=== PATIENT | female | born 1955 | race Caucasian/White ===

== ENCOUNTER 2021-11-19 02:14 | Inpatient (IN) | payer MEDICAID ==
[~2021-11-19] VITALS: Ht 157.5 cm; Wt 116.1 kg
[2021-11-19 02:38] VITALS: BP_SYST 147
--- NOTE | 2021-11-19 02:41 | NUR ---
Placed in room 7 . Placed on cardiac cath technician, blood pressure machine and pulse oximeter. To gown for exam. Side rails up. Report given to Marge RHODES(myah) by Shanel RHODES(reg).
--- NOTE | 2021-11-19 02:41 | NUR ---
ASSISTED TO RM7 VIA WHELLCHAIR C/O HIGH BP AT HOME WITH NAUSEA. PT STATED THAT HER SBP WAS ON 150'S,+SOB. PT DENIES CHESTPAIN AND DIZZINESS, DENIES HEADACHE. PMH;HTN,DM PT PLACED ON CARDIAC MONITORS. PENDING MD GUERRERO.
--- NOTE | 2021-11-19 02:45 | NUR ---
66 y/o F arrived via with c/o elevated bp at home. Pt reports around 1900 she started feeling SOB (+) nauseated and noticed bp was elevated in the 160's. Pt took Losartan 50 mg 1.5 tabs at home with no change in bp or symptoms. Per pt, she is visiting from [facility] and airport discarded her medication so she has not been able to take her Clonazepam in the last 3 days; which she normally takes 0.5 mg daily. Pt arrived in NAD. Breathing adequately on RA; 97% O2 sat. Son at bedside.
[2021-11-19] MEDS ORDERED: clonazePAM 0.5 MG TABLET PO ONE (03:15)
--- NOTE | 2021-11-19 03:15 | NUR ---
MD REA AT BEDSIDE
[2021-11-19] MEDS ORDERED: clonazePAM 0.5 MG TABLET ONE (03:21)
[2021-11-19] MEDS ORDERED: ASPIRIN 325 MG TABLET PO ONE (03:30)
[2021-11-19 03:33] LABS: BASOPHILS # (AUTO) 0.1 K/uL (0.0-0.2); BASOPHILS % (AUTO) 1.3 % (0.0-2.0); EOSINOPHILS # (AUTO) 0.5 K/uL (0.0-0.4); EOSINOPHILS % (AUTO) 6.4 % (0.0-4.0); HEMATOCRIT 38.3 % (36-48); HEMOGLOBIN 13.3 g/dL (12.0-16.0); LYMPHOCYTES # (AUTO) 3.4 K/uL (1.0-5.5); MEAN CORPUSCULAR HEMOGLOBIN 32 pg (27-31); MEAN CORPUSCULAR HGB CONC 35 % (32-36); MEAN CORPUSCULAR VOLUME 92 fL (79.0-98.0); MONOCYTES # (AUTO) 0.7 K/uL (0.0-1.0); MONOCYTES % (AUTO) 8.9 % (1.7-9.3); NEUTROPHILS # (AUTO) 2.8 K/uL (1.8-7.7); NEUTROPHILS % (AUTO) 37.4 % (40.0-70.0); PLATELET COUNT (AUTO) 143 K/uL (130-430); RED BLOOD CELL COUNT(AUTO) 4.17 MIL/uL (4.2-6.2); RED CELL DISTRIBUTION WIDTH 12.7 % (9.0-15.0); WHITE BLOOD COUNT (AUTO) 7.4 K/uL (4.8-10.8)
[2021-11-19 03:40] LABS: ANION GAP 8 (5-15); CALCIUM 9.2 mg/dL (8.4-11.0); CHLORIDE 104 mmol/L (98-107); GLUCOSE 124 mg/dL (70-99); POTASSIUM 3.2 mmol/L (3.5-5.1); SODIUM SERUM 139 mmol/L (136-145); UREA NITROGEN, BLOOD 17 mg/dL (8-21)
[2021-11-19 03:47] LABS: GFR AFRICAN AMERICAN 80 mL/min (>90)
[2021-11-19 03:49] LABS: ALANINE AMINOTRANSFERASE 22 U/L (12-78); ALBUMIN 3.1 g/dL (3.4-4.8); ASPARTATE AMINOTRANSFERASE 24 U/L (10-37); TOTAL BILIRUBIN 0.6 mg/dL (0.0-1.0)
--- NOTE | 2021-11-19 04:20 | NUR ---
Rama DOUGHERTY collected and sent to lab.
[2021-11-19 05:34] LABS: BILIRUBIN,URINE NEGATIVE (NEGATIVE); CLARITY/URINE CLEAR (CLEAR); COLOR,URINE YELLOW (YELLOW); GLUCOSE,URINE NEGATIVE (NEGATIVE); KETONES,URINE NEGATIVE (NEGATIVE); LEUKOCYTE ESTERASE ,URINE 2+ (NEGATIVE); NITRITE, URINE NEGATIVE (NEGATIVE); PROTEIN URINE NEGATIVE (NEGATIVE)
--- NOTE | 2021-11-19 05:38 | NUR ---
Admit bed requested Patient will be admitted to care of . Admitted to TELE unit. Diagnosis CHEST PAIN Inpatient (Yes or No) YES Observation (Yes or No) NO Orientation concerns or request close to nursing station (Yes or No) NO Covid Status NEGATIVE On vent or bipap NO Isolation requirements NO Needs a sitter NO From Home (Yes or if No enter name of facility) YES Requires Dialysis (Yes or No) NO Med Rec Completed (Yes of No) PENDING
[2021-11-19 05:39] LABS: BLOOD, URINE TRACE (NEGATIVE)
[2021-11-19] MEDS ORDERED: cloNIDine HCL 0.1 MG TABLET PO PRN (05:45)
[2021-11-19] MEDS ORDERED: LORazepam 1 MG TABLET PO PRN (05:45)
[2021-11-19] MEDS ORDERED: LOSA100T3 PO (05:46)
[2021-11-19] MEDS ORDERED: LEVO100T PO (05:46)
[2021-11-19] MEDS ORDERED: METF-518 PO (05:46)
[2021-11-19] MEDS ORDERED: CLON0.5T4 PO (05:46)
--- NOTE | 2021-11-19 05:46 | NUR ---
Medication reconciliation completed with information provided by pt at the bedside. Any prior medication reconciliation on file was reviewed and corrected.
[2021-11-19 05:51] LABS: BARBITURATE, URINE NEGATIVE (NEG <=200); BENZODIAZEPINE, URINE NEGATIVE (NEG <=150); CANNABINOID, URINE NEGATIVE (NEG <=50); COCAINE, URINE NEGATIVE (NEG <=150); METHAMPHETAMINES SCREEN,URINE NEGATIVE (NEG <=500); OPIATE, URINE NEGATIVE (NEG <=100); PHENCYCLIDINE SCREEN,URINE NEGATIVE (NEG <=25); URINE AMPHETAMINE NEGATIVE (NEG <=500); URINE METHADONE NEGATIVE (NEG <=200); URINE OXYCODONE SCREEN NEGATIVE (NEG <=100); URINE PROPOXYPHENE SCREEN NEGATIVE (NEG <=300)
[2021-11-19 05:52] LABS: UR TRICYCLIC ANTIDEPRESSANTS NEGATIVE (NEG <=300)
[2021-11-19 06:06] LABS: RBC,URINE 20-50 /HPF (0-3); WBC,URINE 20-50 /HPF (0-3)
[2021-11-19 06:07] LABS: BACTERIA,URINE None Seen /HPF (None Seen); MUCUS,URINE 1+ /LPF (None Seen)
--- NOTE | 2021-11-19 06:37 | NUR ---
CONSULTATION PAGED/CALLED Reason for Consultation: [] CHEST PAIN Person Who was Notified: [] MARCELO Consulting Physician: [] DR RAMIREZ Trade Show Specialist Specialty: [] CARDIO Ordering Physician: [] DR LORENZANA
--- NOTE | 2021-11-19 06:38 | NUR ---
Patient will be admitted to care of MD LORENZANA. Admitted to TELE unit. Will go to room 119. Complete and up to date summary report printed. SBAR report given at bedside to receiving MEAGAN Hylton with opportunity for questions. Son at bedside during admit to Tele floor.
[2021-11-19 06:45] VITALS: BP_SYST 129
--- NOTE | 2021-11-19 07:15 | NUR ---
pt.received via er.dept.language barrier extant:luxembourger.pt.presents admit s/s;chest pain.pt.stated no chest pain nor sob.pt.presents diabetic hx.labs values wnl.pt.presents general status stable.respiratory status stable;unlabored@ room air.02-sat%=98%.pt.capable to ambulate w/out assistance.no c/o of general pain.pt.apprised that snacks/ beverages are available w/in the shift.call light/telephone presented and demonstration attended to.
--- NOTE | 2021-11-19 08:00 | NUR ---
Report received. Pt is awake,alert, and oriented x4, vs stable, denies any pain, no acute distress, NSR on tele. Labs reviewed. Maintain safety measures, side rails up, call light within reach, bed to low position. Assuming care for pt at this time.
[2021-11-19 08:30] VITALS: BP_SYST 152
[2021-11-19] MEDS: LOSARTAN POTASSIUM 50 MG TABLET (COZAAR) PO SCH (09:42)
[2021-11-19] MEDS: clonazePAM 0.5 MG TABLET PO SCH ×2 (09:42→20:11)
[2021-11-19] MEDS ORDERED: INSULIN REGULAR, HUMAN 100 UNITS/ML, 10 ML VIAL (humuLIN R) SUBCUT PRN (10:45)
[2021-11-19] MEDS ORDERED: LOSARTAN POTASSIUM 50 MG TABLET (COZAAR) PO SCH (10:45)
[2021-11-19] MEDS ORDERED: clonazePAM 0.5 MG TABLET PO SCH (10:45)
[2021-11-19] MEDS ORDERED: LEVOTHYROXINE SODIUM 0.1 MG TABLET PO SCH (10:45)
[2021-11-19] MEDS ORDERED: POTASSIUM CHLORIDE 20 MEQ TAB.PRT.SR PO ONE (11:15)
[2021-11-19 12:04] VITALS: BP_SYST 140
[2021-11-19 13:06] LABS: BILIRUBIN,URINE NEGATIVE (NEGATIVE); BLOOD, URINE NEGATIVE (NEGATIVE); CLARITY/URINE CLEAR (CLEAR); COLOR,URINE YELLOW (YELLOW); GLUCOSE,URINE NEGATIVE (NEGATIVE); KETONES,URINE NEGATIVE (NEGATIVE); LEUKOCYTE ESTERASE ,URINE 1+ (NEGATIVE); NITRITE, URINE NEGATIVE (NEGATIVE); PH,URINE 6.5 (5.0-8.0); PROTEIN URINE TRACE (NEGATIVE)
[2021-11-19 15:05] LABS: BACTERIA,URINE FEW /HPF (None Seen); RBC,URINE 0-3 /HPF (0-3)
[2021-11-19 16:55] LABS: THYROID STIMULATING HORMONE 4.77 uIu/mL (0.36-3.74)
[2021-11-19 17:00] VITALS: BP_SYST 150
--- NOTE | 2021-11-19 18:00 | NUR ---
Pt remains stable, denies any pain, ate 100% of dinner. Accu checks 104, sitting up on chair. Vital signs stable, no significant changes this time.
--- NOTE | 2021-11-19 19:10 | NUR ---
OPENING NOTES PATIENT IS RESTING, NO SIGNS OF ACUTE DISTRESS NOTED. FRIEND AT BEDSIDE. CALL LIGHT WITHIN REACH, BED ALARM REFUSED AT THIS TIME DESPITE PATIENT TEACHING, PATIENT DEMONSTRATES PROPER CALL LIGHT USAGE. BED AT LOWEST POSITION, BED LOCKED. DISCUSSED PLAN OF CARE WITH PATIENT. FALL, RESPIRATORY, ASPIRATION, AND SAFETY PRECAUTIONS IN PLACE. WILL CONTINUE TO MONITOR. WILL CONTINUE TO MONITOR.
[2021-11-19 20:00] VITALS: BP_SYST 135
[2021-11-20] VITALS: BP_SYST 149
--- NOTE | 2021-11-20 06:49 | NUR ---
CLOSING NOTES PATIENT IS RESTING, NO SIGNS OF DISTRESS NOTED AT THIS TIME. CALL LIGHT WITHIN REACH, BED ALARM ON, BED AT LOWEST POSITION, BED LOCKED. FALL, RESPIRATORY, ASPIRATION, AND SAFETY PRECAUTIONS IN PLACE THROUGHOUT SHIFT. ALL NEEDS TO BE MET THROUGHOUT SHIFT. WILL ENDORSE CARE TO ONCOMING SHIFT.
[2021-11-20 06:54] LABS: BASOPHILS % (AUTO) 0.6 % (0.0-2.0); EOSINOPHILS # (AUTO) 0.4 K/uL (0.0-0.4); EOSINOPHILS % (AUTO) 5.2 % (0.0-4.0); HEMATOCRIT 36.5 % (36-48); HEMOGLOBIN 12.5 g/dL (12.0-16.0); LYMPHOCYTES # (AUTO) 2.9 K/uL (1.0-5.5); LYMPHOCYTES % (AUTO) 40.5 % (20.5-51.5); MEAN CORPUSCULAR HEMOGLOBIN 32 pg (27-31); MEAN CORPUSCULAR HGB CONC 34 % (32-36); MEAN CORPUSCULAR VOLUME 93 fL (79.0-98.0); MONOCYTES # (AUTO) 0.6 K/uL (0.0-1.0); MONOCYTES % (AUTO) 8.9 % (1.7-9.3); NEUTROPHILS # (AUTO) 3.3 K/uL (1.8-7.7); NEUTROPHILS % (AUTO) 44.8 % (40.0-70.0); PLATELET COUNT (AUTO) 137 K/uL (130-430); RED BLOOD CELL COUNT(AUTO) 3.92 MIL/uL (4.2-6.2); RED CELL DISTRIBUTION WIDTH 13.1 % (9.0-15.0); WHITE BLOOD COUNT (AUTO) 7.3 K/uL (4.8-10.8)
[2021-11-20] MEDS ORDERED: LEVOTHYROXINE SODIUM 0.1 MG TABLET PO SCH (07:00)
[2021-11-20 07:50] VITALS: BP_SYST 126
[2021-11-20 07:53] LABS: ALBUMIN 2.8 g/dL (3.4-4.8); CREATININE 0.84 mg/dL (0.55-1.30); FREE T4 (FREE THYROXINE) 0.9 ng/dl (0.8-1.5); POTASSIUM 3.7 mmol/L (3.5-5.1); THYROID STIMULATING HORMONE 7.27 uIu/mL (0.36-3.74); TOTAL BILIRUBIN 0.5 mg/dL (0.0-1.0)
[2021-11-20] MEDS: clonazePAM 0.5 MG TABLET PO SCH (08:21)
[2021-11-20] MEDS: LOSARTAN POTASSIUM 50 MG TABLET (COZAAR) PO SCH (08:22)
--- NOTE | 2021-11-20 13:17 | NUR ---
DISCHARGE PLANNING Per Dr Clifton plan for dc home today. Spoke with pt at bedside & gave list of [facility] to follow up at. States already received a list, pt had a [facility] Referral list already. States family can take her to clinic to follow up.
[2021-11-20 13:40] VITALS: BP_SYST 133
[2021-11-20] MEDS ORDERED: NITR-85 PO (14:05)
[2021-11-20] MEDS ORDERED: ASPI-1457 PO (14:12)
[2021-11-20 14:32] VITALS: BP_SYST 133
--- NOTE | 2021-11-20 15:12 | NUR ---
D/C Patient Patient given medication reconciliation form and D/C instructions. Exit Care provided. Patient verbalized understanding. MD discussed with patient the results and treatment provided. Ambulatory with steady gait for discharge to home. Patient in stable condition, ID band removed. IV catheter removed, intact and dressing applied, no active bleeding. Rx of ECOTRIN AND MACROBID given. Patient educated on pain management. All belongings sent with patient. Patient and family instructed to go to [facility] as soon as possible so she can elect a PCP and she can be referred to a board mixer tender. Pt and family verbalized understanding.
== END 2021-11-20 15:10 | disposition home or self-care (01) | DRG 203 ==
LOC: SED 02:14 → STU 05:39
PROVIDERS: ADMIT Internal Medicine; ATTEND Internal Medicine
DX: R07.89 Other chest pain (principal); E44.1 Mild protein-calorie malnutrition; E03.9 Hypothyroidism, unspecified; N39.0 Urinary tract infection, site not specified; E66.01 Morbid (severe) obesity due to excess calories; I10 Essential (primary) hypertension; F41.9 Anxiety disorder, unspecified; E11.9 Type 2 diabetes mellitus without complications; Z20.822 Contact with and (suspected) exposure to COVID-19; Z79.899 Other long term (current) drug therapy; Z79.4 Long term (current) use of insulin; Z68.42 Body mass index [BMI] 45.0-49.9, adult
CPT/HCPCS: 36415; 71045; 76376; 80053; 80061; 80307; 81000; 82962; 83036; 83735; 83880; 84439; 84443; 84484; 85025; 85379; 85610-TC; 85730-TC; 87086; 93005; 93306; 99285; G0378; J1815

== ENCOUNTER 2022-01-27 01:09 | Emergency (ER) | payer MEDICAID ==
[~2022-01-27] VITALS: Ht 149.9 cm; Wt 108.9 kg
[~2022-01-27 01:09] MED LIST: ASPI-1457 PO; CLON0.5T4 PO; LEVO100T PO; LOSA100T3 PO; METF-518 PO; NITR-85 PO
[2022-01-27 01:20] VITALS: BP_SYST 187
[2022-01-27 01:53] LABS: EOSINOPHILS # (AUTO) 0.4 K/uL (0.0-0.4); HEMOGLOBIN 14.1 g/dL (12.0-16.0); MONOCYTES # (AUTO) 0.6 K/uL (0.0-1.0); NEUTROPHILS # (AUTO) 3.1 K/uL (1.8-7.7); PLATELET COUNT (AUTO) 137 K/uL (130-430); RED CELL DISTRIBUTION WIDTH 13.1 % (9.0-15.0); WHITE BLOOD COUNT (AUTO) 7.2 K/uL (4.8-10.8)
[2022-01-27 01:59] LABS: ANION GAP 9 (5-15); CALCIUM 9.7 mg/dL (8.4-11.0); CHLORIDE 106 mmol/L (98-107); CREATININE 0.71 mg/dL (0.55-1.30); GLUCOSE 118 mg/dL (70-99); POTASSIUM 3.6 mmol/L (3.5-5.1); UREA NITROGEN, BLOOD 12 mg/dL (8-21)
[2022-01-27 02:03] LABS: BASOPHILS % (AUTO) 0.7 % (0.0-2.0); EOSINOPHILS % (AUTO) 5.3 % (0.0-4.0); HEMATOCRIT 41.1 % (36-48); MEAN CORPUSCULAR HEMOGLOBIN 32 pg (27-31); MEAN CORPUSCULAR HGB CONC 34 % (32-36); MEAN CORPUSCULAR VOLUME 92 fL (79.0-98.0); MONOCYTES % (AUTO) 8.5 % (1.7-9.3); NEUTROPHILS % (AUTO) 43.5 % (40.0-70.0); RED BLOOD CELL COUNT(AUTO) 4.45 MIL/uL (4.2-6.2)
[2022-01-27 02:12] LABS: ALANINE AMINOTRANSFERASE 28 U/L (12-78); ALBUMIN 3.4 g/dL (3.4-4.8); ASPARTATE AMINOTRANSFERASE 24 U/L (10-37); TOTAL BILIRUBIN 0.5 mg/dL (0.0-1.0)
[2022-01-27 02:15] LABS: GFR AFRICAN AMERICAN 106 mL/min (>90)
[2022-01-27 03:30] VITALS: BP_SYST 175
== END 2022-01-27 04:40 | disposition left against medical advice (07) ==
LOC: SED 01:09
DX: I10 Essential (primary) hypertension (principal); R42 Dizziness and giddiness; R11.0 Nausea; Z53.21 Procedure and treatment not carried out due to patient leaving prior to being seen by health care provider
CPT/HCPCS: 36415; 71045; 80053; 83880; 84484; 85025; 93005

== ENCOUNTER 2022-03-12 18:35 | Emergency (ER) | payer MEDICAID ==
[~2022-03-12] VITALS: Ht 149.9 cm; Wt 95.3 kg
[2022-03-12 19:02] VITALS: BP_SYST 139
--- NOTE | 2022-03-12 21:33 | NUR ---
Per yield clerk, pt LWBS.
== END 2022-03-12 21:33 | disposition left against medical advice (07) ==
LOC: SED 18:35
DX: I10 Essential (primary) hypertension (principal); R42 Dizziness and giddiness; Z53.21 Procedure and treatment not carried out due to patient leaving prior to being seen by health care provider

== ENCOUNTER 2022-06-03 01:05 | Emergency (ER) | payer MEDICAID ==
[~2022-06-03] VITALS: Ht 157.5 cm; Wt 103.0 kg
[~2022-06-03 01:05] MED LIST changes: -LOSA100T3 PO; +LOSA100T4 PO
--- NOTE | 2022-06-03 01:15 | NUR ---
Patient to ER bed 08 to gown for evaluation. Side rails up.
--- NOTE | 2022-06-03 01:18 | NUR ---
DR. KNIGHT AT BEDSIDE WITH PATIENT FOR MSE.
--- NOTE | 2022-06-03 01:24 | NUR ---
# 20 gauge angiocath placed to LAC. Use of asceptic technique. Opsite placed over site. Blood return noted. Blood for lab drawn from site. Flushed with 10 cc of normal saline. No evidence of infiltration noted. Patient tolerated well.
[2022-06-03 01:27] VITALS: BP_SYST 165
[2022-06-03] MEDS ORDERED: MAG HYDROX/AL HYDROX/SIMETH 30 ML, LIDOCAINE VISCOUS 2% 15ML (PO) 15 ML, DICYCLOMINE HC... PO ONE ×3 (01:30)
--- NOTE | 2022-06-03 01:34 | NUR ---
PT FROM HOME WITH C/O OF CP, MEDIAL RADIAITING TO RIGHT SIDE ACCOMPANIED BY VOMITING. PT STATES THE PAIN STARTED AT 2030 AFTER EATING AND WORSENED UNTIL ARRIVAL . PT REPORTS VOMITING. PT SPEAKING IN FULL SENTENCES AND HAS AND INCREASED WORK OF BREATHING. BP OF 165/90, MADE AWARE. SAFETY PRECAUTIONS IN PLACE AND CONNECTED TO MONITOR.
--- NOTE | 2022-06-03 01:38 | NUR ---
COVID SAMPLE COLLECTED AND SENT TO LAB
[2022-06-03] MEDS ORDERED: ONDANSETRON HCL 4 MG/2 ML VIAL IVP ONE (01:45)
[2022-06-03 01:47] LABS: BASOPHILS # (AUTO) 0.1 K/uL (0.0-0.2); BASOPHILS % (AUTO) 1.3 % (0.0-2.0); EOSINOPHILS # (AUTO) 0.3 K/uL (0.0-0.4); EOSINOPHILS % (AUTO) 2.6 % (0.0-4.0); HEMATOCRIT 41.7 % (36-48); HEMOGLOBIN 14.2 g/dL (12.0-16.0); LYMPHOCYTES # (AUTO) 4.2 K/uL (1.0-5.5); LYMPHOCYTES % (AUTO) 38.6 % (20.5-51.5); MEAN CORPUSCULAR HEMOGLOBIN 31 pg (27-31); MEAN CORPUSCULAR HGB CONC 34 % (32-36); MEAN CORPUSCULAR VOLUME 92 fL (79.0-98.0); MONOCYTES # (AUTO) 0.9 K/uL (0.0-1.0); MONOCYTES % (AUTO) 8.1 % (1.7-9.3); NEUTROPHILS # (AUTO) 5.3 K/uL (1.8-7.7); NEUTROPHILS % (AUTO) 49.4 % (40.0-70.0); PLATELET COUNT (AUTO) 144 K/uL (130-430); RED BLOOD CELL COUNT(AUTO) 4.53 MIL/uL (4.2-6.2); RED CELL DISTRIBUTION WIDTH 13.1 % (9.0-15.0); WHITE BLOOD COUNT (AUTO) 10.8 K/uL (4.8-10.8)
[2022-06-03 01:49] LABS: ANION GAP 11 (5-15); CALCIUM 9.7 mg/dL (8.4-11.0); CHLORIDE 99 mmol/L (98-107); CREATININE 0.81 mg/dL (0.55-1.30); GLUCOSE 110 mg/dL (70-99); UREA NITROGEN, BLOOD 18 mg/dL (8-21)
[2022-06-03 01:50] LABS: GFR AFRICAN AMERICAN 90 mL/min (>90)
[2022-06-03 01:56] LABS: ALANINE AMINOTRANSFERASE 23 U/L (12-78); ALBUMIN 3.4 g/dL (3.4-4.8); ASPARTATE AMINOTRANSFERASE 26 U/L (10-37); TOTAL BILIRUBIN 0.5 mg/dL (0.0-1.0)
--- NOTE | 2022-06-03 02:08 | NUR ---
URINE SAMPLE COLLECTED AND SENT TO LAB.
[2022-06-03 02:20] LABS: BILIRUBIN,URINE NEGATIVE (NEGATIVE); COLOR,URINE YELLOW (YELLOW); GLUCOSE,URINE NEGATIVE (NEGATIVE); KETONES,URINE NEGATIVE (NEGATIVE); LEUKOCYTE ESTERASE ,URINE 1+ (NEGATIVE); NITRITE, URINE NEGATIVE (NEGATIVE); PROTEIN URINE NEGATIVE (NEGATIVE)
[2022-06-03 02:28] LABS: BLOOD, URINE TRACE (NEGATIVE)
[2022-06-03 02:29] LABS: CLARITY/URINE SLIGHTLY CLOUDY (CLEAR); RBC,URINE 0-3 /HPF (0-3)
[2022-06-03 02:30] LABS: BACTERIA,URINE FEW /HPF (None Seen); TRICHOMONAS,URINE Rare /HPF (None Seen)
[2022-06-03] MEDS ORDERED: ONDA-8 TL (02:43)
[2022-06-03] MEDS ORDERED: FAMO-132 PO (02:43)
[2022-06-03] MEDS ORDERED: CEPH-548 PO (02:43)
[2022-06-03] MEDS ORDERED: MOM PO (02:43)
[2022-06-03] MEDS ORDERED: SIME180C35 PO (02:43)
[2022-06-03 03:20] VITALS: BP_SYST 133
--- NOTE | 2022-06-03 03:20 | NUR ---
Patient given written and verbal discharge instructions and verbalizes understanding. ER DR. KNIGHT discussed with patient the results and treatment provided. Patient in stable condition. ID arm band removed. IV catheter removed intact and dressing applied, no active bleeding. Rx of cephalexin, milk of mag, zofran, pepcid, and gas-x given. Patient educated on pain management and to follow up with PMD. Pain Scale 0. Opportunity for questions provided and answered. Medication side effect fact sheet provided.
== END 2022-06-03 03:20 | disposition home or self-care (01) ==
LOC: SED 01:05
DX: N39.0 Urinary tract infection, site not specified (principal); R07.89 Other chest pain; K29.70 Gastritis, unspecified, without bleeding; R11.2 Nausea with vomiting, unspecified; Z79.899 Other long term (current) drug therapy; Z20.822 Contact with and (suspected) exposure to COVID-19
CPT/HCPCS: 99285; 96374; 71045; 87426; 80053; 81000; 85025; 87086; 84484; 36415; 93005; J2001; J2405

== ENCOUNTER 2022-06-18 15:22 | Emergency (ER) | payer MEDICAID ==
[~2022-06-18] VITALS: Ht 157.5 cm; Wt 99.8 kg
[~2022-06-18 15:22] MED LIST changes: +CEPH-548 PO; +FAMO-132 PO; +MOM PO; +ONDA-8 TL; +SIME180C35 PO
[2022-06-18 15:23] VITALS: BP_SYST 142
--- NOTE | 2022-06-18 15:27 | NUR ---
Patient triaged and placed in RM 8. VSS and patient appears in no acute distress at this time, encouraged pt to slow breathing pt comlplied and apears to be in relief. Accompanied by self, RN informed of arrival and MD notified of need for MSE. EKG complete and pt placed on monitor.
[2022-06-18] MEDS ORDERED: LORazepam 1 MG TABLET PO ONE (15:30)
--- NOTE | 2022-06-18 15:35 | NUR ---
Pt brought in by spouse from home. Chief complaint SOB. Pt hyperventilates with 97% saturation. Pt is aaox3 denies chest pain. Skin intact, denies NVD, pt relieved with 2 liters oxygen and calming measures. Pt sitting up at HOB 45 degrees. PMH Asthma and anxiety.
--- NOTE | 2022-06-18 15:40 | NUR ---
Pt to Radiology dept for CT xray.
--- NOTE | 2022-06-18 15:45 | NUR ---
Pt ambulates to restroom with steady gait.
[2022-06-18 16:04] LABS: BASOPHILS # (AUTO) 0.1 K/uL (0.0-0.2); BASOPHILS % (AUTO) 0.9 % (0.0-2.0); EOSINOPHILS # (AUTO) 0.2 K/uL (0.0-0.4); EOSINOPHILS % (AUTO) 2.4 % (0.0-4.0); LYMPHOCYTES # (AUTO) 2.7 K/uL (1.0-5.5); MEAN CORPUSCULAR HEMOGLOBIN 32 pg (27-31); MEAN CORPUSCULAR HGB CONC 34 % (32-36); MEAN CORPUSCULAR VOLUME 93 fL (79.0-98.0); MONOCYTES # (AUTO) 0.7 K/uL (0.0-1.0); MONOCYTES % (AUTO) 8.7 % (1.7-9.3); PLATELET COUNT (AUTO) 154 K/uL (130-430); RED BLOOD CELL COUNT(AUTO) 4.43 MIL/uL (4.2-6.2); RED CELL DISTRIBUTION WIDTH 12.8 % (9.0-15.0); WHITE BLOOD COUNT (AUTO) 7.6 K/uL (4.8-10.8)
[2022-06-18 16:13] LABS: ANION GAP 14 (5-15); CALCIUM 9.5 mg/dL (8.4-11.0); CHLORIDE 102 mmol/L (98-107); CREATININE 1.08 mg/dL (0.55-1.30); GFR AFRICAN AMERICAN 65 mL/min (>90); GLUCOSE 167 mg/dL (70-99); UREA NITROGEN, BLOOD 14 mg/dL (8-21)
[2022-06-18 16:20] LABS: ALANINE AMINOTRANSFERASE 25 U/L (12-78); ALBUMIN 3.5 g/dL (3.4-4.8); ASPARTATE AMINOTRANSFERASE 17 U/L (10-37); TOTAL BILIRUBIN 0.5 mg/dL (0.0-1.0)
--- NOTE | 2022-06-18 16:39 | NUR ---
Pt assisted to the restroom, ambulates with steady gait. Son is bedside.
[2022-06-18] MEDS ORDERED: LORA-259 PO (16:43)
[2022-06-18] MEDS ORDERED: GLIP2.5T3 PO (16:49)
[2022-06-18] MEDS ORDERED: NACL 0.9% 3,000 ML IV ONE (17:00)
--- NOTE | 2022-06-18 17:15 | NUR ---
Note jesika in EDM - 06/18/22 at 1810 by KANDACENLARAPR Medicated per MD orders. IVF infusing with no s/s of infiltration at this time. Will cont to monitor
--- NOTE | 2022-06-18 17:30 | NUR ---
Medicated per MD orders. IVF infusing with no s/s of infiltration at this time. Will cont to monitor
--- NOTE | 2022-06-18 19:17 | NUR ---
MEAGAN Gallardo recieved report
[2022-06-18 20:32] VITALS: BP_SYST 138
--- NOTE | 2022-06-18 20:38 | NUR ---
Patient given written and verbal discharge instructions and verbalizes understanding. ER MD discussed with patient the results and treatment provided. Patient in stable condition. ID arm band removed. IV catheter removed intact and dressing applied, no active bleeding. Rx of GLIPIZIDE AND LORAZEPAM given. Patient educated on pain management and to follow up with PMD. Pain Scale 0/10. Opportunity for questions provided and answered. Medication side effect fact sheet provided.
== END 2022-06-18 20:32 | disposition home or self-care (01) ==
LOC: SED 15:22
DX: R06.4 Hyperventilation (principal); E87.20 Acidosis, unspecified; R06.00 Dyspnea, unspecified; E11.9 Type 2 diabetes mellitus without complications; I10 Essential (primary) hypertension; Z79.899 Other long term (current) drug therapy
CPT/HCPCS: 99284; 96360; 71045; 80053; 83880; 85025; 84484; 36415; 83605; J7030

== ENCOUNTER 2022-08-28 00:49 | Emergency (ER) | payer MEDICAID ==
[~2022-08-28] VITALS: Ht 162.6 cm; Wt 99.8 kg
[~2022-08-28 00:49] MED LIST changes: +GLIP2.5T3 PO; +LORA-259 PO
--- NOTE | 2022-08-28 01:05 | NUR ---
ER Dr. HAMM at bedside examining patient.
--- NOTE | 2022-08-28 01:05 | NUR ---
PT BIB SON FROM HOME, AMBULATED TO BED 6. PT C/O HTN AND LILLY x3 DAYS. PT STATES SHE FEELS NAUSEOUS. PT STATES SHE DRANK BP MEDICATION PRIOR TO ARRIVAL TO ED. PT RATES LILLY 10/04. PT C/O SOUR MOUTH. PT C/O HEAVY EYES. PT DENIES V/D, SOB AND CHEST PAIN. PT DENIES FEVER AND CHILLS. PT STATES SHE TOOK TYLENOL AT 0900. SAFETY PRECAUTION IN PLACE.
[2022-08-28] MEDS ORDERED: MAG-AL HYDROX/SIMETH 30 ML UDC PO ONE (01:15)
[2022-08-28] MEDS ORDERED: KETOROLAC TROMETHAMINE 30 MG VIAL IM ONE (01:15)
[2022-08-28 01:40] VITALS: BP_SYST 139
--- NOTE | 2022-08-28 01:43 | NUR ---
Placed in room 6 . Placed on hall monitor, blood pressure machine and pulse oximeter. To gown for exam. Side rails up. Report given to Sam JACQUES.
[2022-08-28] MEDS ORDERED: FAMO20TA8 PO (01:52)
[2022-08-28] MEDS ORDERED: NAPR-690 PO (01:52)
[2022-08-28 02:00] VITALS: BP_SYST 151
--- NOTE | 2022-08-28 02:00 | NUR ---
Patient given written and verbal discharge instructions and verbalizes understanding. ER DR HAMM discussed with patient the results and treatment provided. Patient in stable condition. ID arm band removed. Rx of NAPROXEN AND PEPCID given. Patient educated on pain management and to follow up with PMD. Pain Scale 1/10. Opportunity for questions provided and answered. Medication side effect fact sheet provided.
== END 2022-08-28 02:06 | disposition home or self-care (01) ==
LOC: SED 00:49
DX: R51.9 Headache, unspecified (principal); K29.70 Gastritis, unspecified, without bleeding; R11.0 Nausea; E11.9 Type 2 diabetes mellitus without complications; I10 Essential (primary) hypertension; Z79.899 Other long term (current) drug therapy
CPT/HCPCS: 99283; 96372; J1885

== ENCOUNTER 2023-01-29 12:54 | Emergency (ER) | payer MEDICAID ==
[~2023-01-29] VITALS: Ht 157.5 cm; Wt 95.3 kg
[~2023-01-29 12:54] MED LIST changes: +FAMO20TA8 PO; +LOSA-415 PO; -LOSA100T4 PO; +NAPR-690 PO
[2023-01-29 13:07] VITALS: BP_SYST 141; PULSE 67; RESP 17; TEMP 97; O2SAT 97
[2023-01-29] MEDS ORDERED: MECL-225 PO (13:16)
== END 2023-01-29 13:25 | disposition home or self-care (01) ==
LOC: SED 12:54
DX: H81.12 Benign paroxysmal vertigo, left ear (principal); H93.12 Tinnitus, left ear; E11.9 Type 2 diabetes mellitus without complications; I10 Essential (primary) hypertension; Z79.899 Other long term (current) drug therapy
CPT/HCPCS: 99282